=== PATIENT | female | born 1995 | race Two or more races ===

== ENCOUNTER 2024-04-06 08:49 | Emergency (ER) | payer OTHER ==
[~2024-04-06] VITALS: Ht 157.5 cm; Wt 45.4 kg
[2024-04-06 08:51] VITALS: BP 103/63; PULSE 96; RESP 16; TEMP 97.6; O2SAT 99
[2024-04-06] MEDS: LIDOCAINE 5% 1 EA PATCH TP ONE (09:36)
[2024-04-06] MEDS: KETOROLAC 30 MG/ML VIAL IM ONE (09:42)
[2024-04-06] MEDS ORDERED: LID5T TP (10:21)
[2024-04-06] MEDS ORDERED: IBUP-1842 PO (10:21)
[2024-04-06 10:53] VITALS: BP 143/80; PULSE 74; RESP 19; TEMP 97.3; O2SAT 97
== END 2024-04-06 10:56 | disposition home or self-care (01) ==
LOC: MED 08:49
DX: S20.212A Contusion of left front wall of thorax, initial encounter (principal); Z79.899 Other long term (current) drug therapy; V49.88XA Car occupant (driver) (passenger) injured in other specified transport accidents, initial encounter; Y93.89 Activity, other specified; Y92.89 Other specified places as the place of occurrence of the external cause; Y99.8 Other external cause status
CPT/HCPCS: 71046; 81025; 96372; 99283; J1885